=== PATIENT | male | born 1980 | race American Indian/Alaskan Native ===

== ENCOUNTER 2017-09-14 13:35 | Emergency (ER) | payer BC ==
[2017-09-14 13:49] VITALS: BP 121/85
[2017-09-14] MEDS ORDERED: NACL 0.9% 1000 ML 1,000 ML IV ONE (17:46)
[2017-09-14] MEDS ORDERED: TORADOL IV ONE (17:46)
[2017-09-14] MEDS ORDERED: ZOFRAN IV ONE (17:46)
--- NOTE | 2017-09-14 17:46 | Emergency Department Report ---
Blank Doc - Documentation Documentation: Patient is a 36-year-old [place] male who's had headaches for the past 3 days. Patient's had multiple episodes of nausea vomiting as well. Patient states that he now also has paresthesias in his hands and feet. Patient does not feel as though his heart racing does not feel panicked. Patient states this headache is different than his normal headaches that he gets for migraines. Patient will have electrolytes ordered to rule out eletrolyte abnl from nausea vomiti potentially causing the paresthesias to give fluids for his headache. Ng
[2017-09-14 18:05] LABS: Basophils % (Auto) 0.5 % (0.0-1.8); Eosinophils # (Auto) 0.1 K/mm3 (0.0-0.4); Eosinophils % (Auto) 1.7 % (0.0-4.3); Hematocrit 34.3 % (35.5-45.6); Hemoglobin 10.5 gm/dl (11.8-15.2); Lymphocytes # (Auto) 2.1 K/mm3 (1.2-5.4); Lymphocytes % (Auto) 27.8 % (13.4-35.0); Mean Corpuscular HGB Conc 31 % (32-34); Monocytes # (Auto) 0.7 K/mm3 (0.0-0.8); Monocytes % (Auto) 9.2 % (0.0-7.3); Platelet Count 206 K/mm3 (140-440); Red Blood Count 4.93 M/mm3 (3.65-5.03); Red Cell Distribution Width 18.9 % (13.2-15.2)
[2017-09-14 18:08] LABS: Mean Corpuscular Hemoglobin 21 pg (28-32); Mean Corpuscular Volume 70 fl (84-94)
[2017-09-14 18:12] LABS: BUN/Creatinine Ratio 13; Blood Urea Nitrogen 12 mg/dL (9-20); Calcium 8.9 mg/dL (8.4-10.2); Hemolysis Index 2
--- NOTE | 2017-09-14 21:05 | Emergency Department Report ---
ED General Adult HPI - General Chief complaint: Headache Stated complaint: LEROY/VOMITNG/NUMBNESS IN FINGERS Time Seen by Provider: 09/14/17 17:31 Source: patient Mode of arrival: Ambulatory Limitations: No Limitations - History of Present Illness Initial comments: Patient is a 36-year-old [place] male who's had headaches for the past 3 days. Patient's had multiple episodes of nausea vomiting as well. Patient states that he now also has paresthesias in his hands and feet. Patient does not feel as though his heart racing does not feel panicked. Patient states this headache is different than his normal headaches that he gets for migraines. Patient will have electrolytes ordered to rule out eletrolyte abnl from nausea vomiting potentially causing the paresthesias to give fluids for his headache. -: days(s) (3) Severity scale (0 -10): 8 Quality: aching Consistency: intermittent Improves with: none Worsens with: none - Related Data Allergies Allergy/AdvReac Type Severity Reaction Status Date / Time No Known Allergies Allergy Unverified 09/14/17 13:45 ED Review of Systems ROS: Stated complaint: LEROY/VOMITNG/NUMBNESS IN FINGERS Other details as noted in HPI Constitutional: denies: chills, fever Eyes: denies: eye pain, eye discharge, vision change ENT: denies: ear pain, throat pain Respiratory: denies: cough, shortness of breath, wheezing Cardiovascular: denies: chest pain, palpitations Endocrine: no symptoms reported Gastrointestinal: vomiting, hematochezia Genitourinary: denies: urgency, dysuria Musculoskeletal: denies: back pain, joint swelling, arthralgia Skin: denies: rash, lesions Neurological: headache, paresthesias (fingers and toes) Psychiatric: denies: anxiety, depression Hematological/Lymphatic: denies: easy bleeding, easy bruising ED Past Medical Hx - Past Medical History Previous Medical History?: No - Surgical History Past Surgical History?: No ED Physical Exam - General Limitations: No Limitations General appearance: alert, in no apparent distress - Head Head exam: Present: atraumatic, normocephalic - Eye Eye exam: Present: normal appearance - ENT ENT exam: Present: mucous membranes moist - Neck Neck exam: Present: normal inspection - Respiratory Respiratory exam: Present: normal lung sounds bilaterally. Absent: respiratory distress - Cardiovascular Cardiovascular Exam: Present: regular rate, normal rhythm. Absent: systolic murmur, diastolic murmur, rubs, gallop - GI/Abdominal GI/Abdominal exam: Present: soft, normal bowel sounds - Rectal Rectal exam: Present: normal inspection, normal rectal tone, heme (+) stool, normal prostate. Absent: fecal impaction, hemorrhoids, tenderness - Extremities Exam Extremities exam: Present: normal inspection - Back Exam Back exam: Present: normal inspection - Neurological Exam Neurological exam: Present: alert, oriented X3 - Psychiatric Psychiatric exam: Present: normal affect, normal mood - Skin Skin exam: Present: warm, dry, intact, normal color. Absent: rash ED Course Vital Signs 09/14/17 13:45 Temperature 98.2 F Pulse Rate 85 Respiratory 16 Rate Blood Pressure 121/85 O2 Sat by Pulse 98 Oximetry - Reevaluation(s) Reevaluation #1: 09/14/17 21:08 Patient reports he feels much better after neb and IV fluids and meds. ED Medical Decision Making - Lab Data Result diagrams: 09/14/17 17:50 09/14/17 17:50 - Medical Decision Making Patient has been evaluated by this provider and fast track. Patient also has been evaluated by Dr. Gilmore. Review of labs shows chemistries stable within normal limits. Hematology shows there is some anemia. Provider did a stool culture which is guaiac positive. Discussed patient he needs to follow up for GI specialists. Patient verbalized understanding. Critical care attestation.: If time is entered above; I have spent that time in minutes in the direct care of this critically ill patient, excluding procedure time. 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 He can take Tylenol for your headache. I would avoid ibuprofen at this time. Please also follow up with her primary care provider. Referrals: PRIMARY CARE, [Primary Care Provider] - 3-5 Days ZORA LOPEZ MD [Staff Physician] - 3-5 Days your,Primary Care Provider [Other] - 3-5 Days Forms: Work/School Release Form(ED), Accompanied Note
== END 2017-09-14 21:32 | disposition home or self-care (01) ==
LOC: ED 13:35
DX: D64.9 Anemia, unspecified (principal); R51 Headache; R19.5 Other fecal abnormalities
CPT/HCPCS: 36415; 80048; 83735; 85025; 96361; 96374; 96375; 99283; J1885; J2405; J7030